=== PATIENT | female | born 1980 | race African-American/Black ===

== ENCOUNTER 2016-10-26 11:06 | Emergency (ER) | payer OTHER ==
[~2016-10-26] VITALS: Ht 160 cm; Wt 81.7 kg
--- NOTE | ~2016-10-26 | EKG ---
[place] [address] [facility] [place] [address] ELECTROCARDIOGRAM REPORT Name: VINICIO ELIAS Room #: [facility] OCRNEL Keyes#: [id number] Admission: 10/26/16 Attend Phys: Discharge: 10/26/16 Date of : 76 Report #: [id number] THIS REPORT FOR: //name// [facility] ED Test Date: 2016-10-26 Test Time: 11:15:59 Pat Name: VINICIO ELIAS Department: Room: Gender: F Business Office Specialist: Mariana LUNA : 1980 Requested By: Rickie Godinez Order Number: [id number] MD: Darren Claros Measurements Intervals [place] Rate: 68 P: 48 NE: 149 QRS: 40 QRSD: 79 T: 35 QT: 386 QTc: 411 Interpretive Statements Sinus rhythm Normal tracing No previous ECG available for comparison Electronically Signed On 10-27-2016 8:35:40 CDT by Darren Claros [email or web address] <ELECTRONICALLY SIGNED> By: Darren Claros MD, [facility] 10/27/16 0835 1115 1115 Darren Claros MD, FACC /EPI
[~2016-10-26 11:06] MED LIST: CELEXA 20 MG TA20 M1; DARVOCET-N 1001 EAC1 PO; IBUPROFEN 400400 M1 PO; NOHOMEMEDICATIONS; NORFLEX100 MG PO
[2016-10-26 12:45] LABS: ABSOLUTE NEUTROPHILS 4.9 thou/uL (1.4-8.2); BASOPHILS 0.9 % (0.0-2.0); EOSINOPHILS 2.1 % (0.0-3.0); HEMATOCRIT 40.2 % (37.0-47.0); HEMOGLOBIN 13.5 gm/dL (12.0-15.0); LYMPHOCYTES 29.5 % (24.0-44.0); MCHC 33.6 g/dL (28.0-37.0); MCV 86.2 fL (80.0-100.0); MONOCYTES 5.3 % (1.0-8.0); PLATELET COUNT 288 thou/uL (150-400); POLYS 62.2 % (36.0-66.0); RBC 4.66 mil/uL (4.20-5.00); RDW 15.6 % (10.5-14.5); WBC 7.9 thou/uL (4.0-11.0)
[2016-10-26 12:49] LABS: ANION GAP 10 mmol/L (7-16); BUN 14 mg/dL (7-18); CALCIUM 8.7 mg/dL (8.5-10.1); CHLORIDE 102 mmol/L (98-107); CO2 24 mmol/L (21-32); CREATININE 1.2 mg/dL (0.6-1.0); GLUCOSE 89 mg/dL (74-106); MANUAL DIFF NO; POTASSIUM 3.8 mmol/L (3.5-5.1); SODIUM 136 mmol/L (136-145)
[2016-10-26 12:57] LABS: TROPONIN-I < 0.04 ng/mL (<0.04-0.07)
[2016-10-26] MEDS ORDERED: FLEXERIL PO (13:04)
[2016-10-26] MEDS ORDERED: MEDROLDOSEPACK PO (13:04)
[2016-10-26] MEDS ORDERED: LIDODERM 5%1 PATC1 TRANSDERM (13:04)
[2016-10-26] MEDS ORDERED: ACYCLOVIR 800800 MG PO (13:11)
[2016-10-26 13:36] VITALS: BP 121/85
== END 2016-10-26 13:37 | disposition home or self-care (01) ==
LOC: ER 11:06
PROVIDERS: Physician Assistant
DX: S16.1XXA Strain of muscle, fascia and tendon at neck level, initial encounter (principal); M54.12 Radiculopathy, cervical region; B02.9 Zoster without complications; F10.99 Alcohol use, unspecified with unspecified alcohol-induced disorder; X58.XXXA Exposure to other specified factors, initial encounter; Y93.89 Activity, other specified; Y92.89 Other specified places as the place of occurrence of the external cause; Y99.8 Other external cause status

== ENCOUNTER 2018-02-06 18:45 | Emergency (ER) | payer OTHER ==
[~2018-02-06] VITALS: Ht 160 cm; Wt 83.9 kg
[~2018-02-06 18:45] MED LIST changes: +ACYCLOVIR 800800 MG PO; +FLEXERIL PO; +LIDODERM 5%1 PATC1 TRANSDERM; +MEDROLDOSEPACK PO
[2018-02-06] MEDS ORDERED: ANXIETY MED PO (19:05)
[2018-02-06] MEDS ORDERED: ANTIDEPRESSANT PO (19:06)
[2018-02-06 19:25] LABS: URINE BILIRUBIN NEGATIVE (Negative); URINE BLOOD 2+ (Negative); URINE CLARITY CLEAR; URINE COLOR YELLOW; URINE GLUCOSE-RANDOM* NEGATIVE (Negative); URINE KETONES NEGATIVE (Negative); URINE NITRITE-REFLEX NEGATIVE (Negative); URINE PROTEIN (DIPSTICK) NEGATIVE (Negative); URINE SPECIFIC GRAVITY <= 1.005 (1.005-1.035); URINE UROBILINOGEN 0.2 E.U./dl (0.2-1.0)
[2018-02-06 19:26] LABS: URINE LEUKOCYTES-REFLEX TRACE (Negative)
[2018-02-06 19:35] LABS: CASTS None Seen /LPF (None Seen); SQUAMOUS 4-10 Moderate /LPF (0-3); URINE WBC-REFLEX 0-5 Rare /HPF (0-5)
[2018-02-06 19:36] LABS: BACTERIA-REFLEX None Seen /HPF (None Seen); CRYSTALS None Seen /LPF (None Seen); URINE RBC 0-2 Rare /HPF (0-2)
[2018-02-06 19:49] LABS: ABSOLUTE NEUTROPHILS 4.7 thou/uL (1.4-8.2); BASOPHILS 0.7 % (0.0-2.0); EOSINOPHILS 1.6 % (0.0-3.0); HEMATOCRIT 37.9 % (37.0-47.0); HEMOGLOBIN 12.6 gm/dL (12.0-15.0); LYMPHOCYTES 33.8 % (24.0-44.0); MCH 28.8 pg (26.0-34.0); MCHC 33.3 g/dL (28.0-37.0); MCV 86.4 fL (80.0-100.0); MONOCYTES 7.4 % (1.0-8.0); PLATELET COUNT 256 thou/uL (150-400); POLYS 56.5 % (36.0-66.0); RBC 4.39 mil/uL (4.20-5.00); RDW 15.3 % (10.5-14.5); WBC 8.3 thou/uL (4.0-11.0)
[2018-02-06 19:57] LABS: CALCIUM 9.2 mg/dL (8.5-10.1); CREATININE 1.1 mg/dL (0.6-1.0); POTASSIUM 3.9 mmol/L (3.5-5.1)
[2018-02-06] MEDS ORDERED: NORCO 5-325 TA1 EACH PO (20:50)
[2018-02-06] MEDS ORDERED: MOBIC15 MG PO (20:50)
[2018-02-06 21:20] VITALS: BP 110/78
== END 2018-02-06 21:21 | disposition home or self-care (01) ==
LOC: ER 18:45
PROVIDERS: Physician Assistant
DX: N83.201 Unspecified ovarian cyst, right side (principal); F17.210 Nicotine dependence, cigarettes, uncomplicated; Z98.890 Other specified postprocedural states

== ENCOUNTER 2018-07-01 17:49 | Emergency (ER) | payer OTHER ==
[~2018-07-01] VITALS: Ht 160 cm; Wt 86.2 kg
[~2018-07-01 17:49] MED LIST changes: +ANTIDEPRESSANT PO; +ANXIETY MED PO; +MOBIC15 MG PO; +NORCO 5-325 TA1 EACH PO
[2018-07-01] MEDS ORDERED: IBUPROFEN 600600 M1 PO (19:48)
[2018-07-01] MEDS ORDERED: TRAMADOL 50 MG50 MG PO (19:48)
[2018-07-01] MEDS ORDERED: NORFLEX100 MG PO (19:48)
[2018-07-01 20:07] VITALS: BP 128/78
== END 2018-07-01 20:00 | disposition home or self-care (01) ==
LOC: ER 17:49
DX: S16.1XXA Strain of muscle, fascia and tendon at neck level, initial encounter (principal); S46.911A Strain of unspecified muscle, fascia and tendon at shoulder and upper arm level, right arm, initial encounter; F17.210 Nicotine dependence, cigarettes, uncomplicated; Z98.890 Other specified postprocedural states; V89.2XXA Person injured in unspecified motor-vehicle accident, traffic, initial encounter; Y93.89 Activity, other specified; Y92.89 Other specified places as the place of occurrence of the external cause; Y99.8 Other external cause status

== ENCOUNTER 2018-12-09 20:38 | Emergency (ER) | payer OTHER ==
[~2018-12-09] VITALS: Ht 160 cm; Wt 86.2 kg
[~2018-12-09 20:38] MED LIST changes: +IBUPROFEN 600600 M1 PO; +TRAMADOL 50 MG50 MG PO
[2018-12-09 20:39] VITALS: BP 123/81
[2018-12-09] MEDS ORDERED: MOBIC15 MG PO (21:47)
== END 2018-12-09 22:08 | disposition home or self-care (01) ==
LOC: ER 20:38
DX: S93.601A Unspecified sprain of right foot, initial encounter (principal); Z98.890 Other specified postprocedural states; F17.210 Nicotine dependence, cigarettes, uncomplicated; Y04.8XXA Assault by other bodily force, initial encounter; Y93.89 Activity, other specified; Y92.89 Other specified places as the place of occurrence of the external cause; Y99.8 Other external cause status

== ENCOUNTER 2021-02-07 11:18 | Emergency (ER) | payer OTHER ==
[~2021-02-07] VITALS: Ht 160 cm; Wt 98.9 kg
[2021-02-07] MEDS ORDERED: PROMETH-CODEIN 65 ML PO (13:04)
[2021-02-07 13:35] VITALS: BP 134/87
== END 2021-02-07 13:37 | disposition home or self-care (01) ==
LOC: ER 11:18
DX: U07.1 COVID-19 (principal); R05 Cough; J02.9 Acute pharyngitis, unspecified; M79.10 Myalgia, unspecified site; F17.210 Nicotine dependence, cigarettes, uncomplicated; M25.569 Pain in unspecified knee